=== PATIENT | female | born 1965 | race Two or more races ===

== ENCOUNTER 2021-08-17 12:34 | Outpatient (CLI) | payer OTHER | END 2021-08-17 14:16 | disposition home or self-care (01) | LOC: SONOGRAMA 12:34 | PROVIDERS: ATTEND Pathology Anatomic Pathology & Clinical Pathology | DX: E04.8 Other specified nontoxic goiter (principal) ==

== ENCOUNTER 2022-06-16 17:33 | Emergency (ER) | payer OTHER ==
[~2022-06-16] VITALS: Ht 175.3 cm; Wt 77.1 kg
[2022-06-16] MEDS ORDERED: LOSARTAN POTAS100 MG PO (18:47)
[2022-06-16] MEDS ORDERED: MONTELUKAST SOD10 MG PO (18:47)
[2022-06-16] MEDS ORDERED: LORAZEPAM1 MG PO (18:47)
[2022-06-16] MEDS ORDERED: ESCITALOPRAM OXA5 MG PO (18:47)
[2022-06-16] MEDS ORDERED: AMBIEN10 MG PO (18:48)
[2022-06-16] MEDS ORDERED: GABAPENTIN600 MG PO (18:48)
== END 2022-06-16 21:45 | disposition home or self-care (01) ==
LOC: ER 17:33
DX: S61.224A Laceration with foreign body of right ring finger without damage to nail, initial encounter (principal); Z88.5 Allergy status to narcotic agent; Z88.8 Allergy status to other drugs, medicaments and biological substances; Z88.9 Allergy status to unspecified drugs, medicaments and biological substances

== ENCOUNTER 2022-06-27 18:26 | Emergency (ER) | payer OTHER ==
[~2022-06-27] VITALS: Ht 175.3 cm; Wt 77.1 kg
[~2022-06-27 18:26] MED LIST: AMBIEN10 MG PO; ESCITALOPRAM OXA5 MG PO; GABAPENTIN600 MG PO; LORAZEPAM1 MG PO; LOSARTAN POTAS100 MG PO; MONTELUKAST SOD10 MG PO
== END 2022-06-27 20:00 | disposition home or self-care (01) ==
LOC: ER 18:26
DX: Z48.02 Encounter for removal of sutures (principal)

== ENCOUNTER → 2024-03-15 | Emergency (ER) | payer OTHER ==
[~2024-03-15] VITALS: Ht 175.3 cm; Wt 78.5 kg
[~2024-03-15] MED LIST changes: +NORFLEX100MG PO; +ORPHENADRINE CITRATE 30 MG/ML AMPUL IM ONE
== END | disposition home or self-care (01) ==
LOC: ER 11:51
DX: M54.89 Other dorsalgia (principal); M51.36 Other intervertebral disc degeneration, lumbar region; Z88.8 Allergy status to other drugs, medicaments and biological substances; Z88.6 Allergy status to analgesic agent; Z91.041 Radiographic dye allergy status